=== PATIENT | male | born 1960 | race African-American/Black ===

== ENCOUNTER 2019-08-12 15:52 | Inpatient (IN) | payer MEDICARE, MEDICAID ==
[~2019-08-12] VITALS: Ht 182.9 cm; Wt 81.2 kg
[~2019-08-12 15:52] MED LIST: GABA-533 PO; IBUP-2071 PO; LISI10TA7 PO; MOME17N NASAL; OXYC-601 PO; OXYC10 PO; TAMS-13 PO; ZOLP10TA7 PO
[2019-08-12] MEDS ORDERED: FURO20 PO (15:59)
[2019-08-12] MEDS ORDERED: FURO40 PO (16:58)
[2019-08-12] MEDS ORDERED: FUROSEMIDE 40 MG/4 ML VIAL IVP ONE (17:00)
[2019-08-12 17:09] LABS: EOSINOPHILS % (AUTO) 5.5 % (1.0-6.0); HEMOGLOBIN 13.6 g/dL (13.5-17.5); LYMPHOCYTES # (AUTO) 1.4 K/uL (1.0-4.8); LYMPHOCYTES % (AUTO) 26.6 % (22.0-44.0); MEAN CORPUSCULAR HEMOGLOBIN 31.6 pg (26.0-34.0); MEAN CORPUSCULAR HGB CONC 31.6 G/dL (31.0-37.0); MEAN CORPUSCULAR VOLUME 100 fL (80-100); MONOCYTES # (AUTO) 0.5 K/uL (0.1-1.0); MONOCYTES % (AUTO) 10.1 % (2.0-9.0); NEUTROPHILS % (AUTO) 56.8 % (40.0-70.0); PLATELET COUNT (AUTO) 219 K/uL (150-450); RED BLOOD CELL COUNT(AUTO) 4.31 MIL/uL (4.50-5.90); RED CELL DISTRIBUTION WIDTH 14.9 % (11.5-14.5)
[2019-08-12 17:24] LABS: INR 1.1 (0.9-1.1); PROTHROMBIN TIME 11.9 SEC (9.4-11.6)
[2019-08-12 17:28] LABS: APPEARANCE,URINE CLEAR (CLEAR); BILIRUBIN,URINE NEGATIVE (NEGATIVE); GLUCOSE, URINE (UA) NEGATIVE (NEGATIVE); KETONES,URINE NEGATIVE (NEGATIVE); LEUKOCYTE ESTERASE ,URINE NEGATIVE (NEGATIVE); NITRATE,URINE NEGATIVE (NEGATIVE); OCCULT BLOOD,URINE NEGATIVE (NEGATIVE); PROTEIN,URINE TRACE (NEGATIVE)
[2019-08-12 17:39] LABS: CALCIUM, TOTAL 8.9 mg/dL (8.8-10.5); CREATININE 1.66 mg/dL (0.60-1.30); POTASSIUM 3.7 mmol/L (3.5-5.1)
[2019-08-12 17:46] LABS: ALBUMIN 3.4 g/dL (3.4-5.0); BILIRUBIN,TOTAL 1.2 mg/dL (0.1-1.0); TOTAL PROTEIN, SERUM 7.7 g/dL (6.4-8.2)
[2019-08-12] MEDS ORDERED: NITROGLYCERIN 2% (1 GM=INCH) PACKET TP ONE (18:15)
[2019-08-12] MEDS ORDERED: ASPIRIN 325 MG TABLET PO ONE (18:15)
[2019-08-12] MEDS ORDERED: ACETAMINOPHEN 325 MG TABLET PO PRN (19:00)
[2019-08-12] MEDS ORDERED: ONDANSETRON HCL 4 MG/2 ML VIAL IVP PRN (19:00)
[2019-08-12] MEDS ORDERED: 0.9% SODIUM CHLORIDE 10 ML SYRINGE IVP PRN (19:00)
[2019-08-12 20:52] VITALS: BP 123/89
[2019-08-12 23:34] VITALS: BP 114/86
[2019-08-12] MEDS ORDERED: PNEUMOCOCCAL VACCINE POLYVALENT 0.5 ML VIAL [PPSV23] IM ONE (23:45)
[2019-08-13 04:41] VITALS: BP 110/79
[2019-08-13] MEDS ORDERED: 0.9% SODIUM CHLORIDE 10 ML SYRINGE IVP PRN (05:00)
[2019-08-13] MEDS ORDERED: MAGNESIUM HYDROXIDE SUSPENSION 30 ML UDCUP PO PRN (05:00)
[2019-08-13] MEDS ORDERED: OxyCODONE HCL/ACETAMINOPHEN 5-325 MG TABLET PO PRN (05:00)
[2019-08-13] MEDS ORDERED: ONDANSETRON HCL 4 MG/2 ML VIAL IVP PRN (05:00)
[2019-08-13] MEDS ORDERED: ACETAMINOPHEN 325 MG TABLET PO PRN (05:00)
[2019-08-13 06:43] LABS: EOSINOPHILS % (AUTO) 5.7 % (1.0-6.0); HEMATOCRIT 42.4 % (41-53); HEMOGLOBIN 13.6 g/dL (13.5-17.5); LYMPHOCYTES # (AUTO) 1.7 K/uL (1.0-4.8); LYMPHOCYTES % (AUTO) 32.6 % (22.0-44.0); MEAN CORPUSCULAR HEMOGLOBIN 32.2 pg (26.0-34.0); MEAN CORPUSCULAR VOLUME 101 fL (80-100); MONOCYTES # (AUTO) 0.5 K/uL (0.1-1.0); MONOCYTES % (AUTO) 9.5 % (2.0-9.0); NEUTROPHILS # (AUTO) 2.7 K/uL (1.8-7.7); NEUTROPHILS % (AUTO) 51.2 % (40.0-70.0); PLATELET COUNT (AUTO) 225 K/uL (150-450); RED BLOOD CELL COUNT(AUTO) 4.21 MIL/uL (4.50-5.90); RED CELL DISTRIBUTION WIDTH 14.8 % (11.5-14.5)
[2019-08-13 07:09] LABS: ALBUMIN 3.3 g/dL (3.4-5.0); BILIRUBIN,TOTAL 1.6 mg/dL (0.1-1.0); CALCIUM, TOTAL 8.9 mg/dL (8.8-10.5); CREATININE 1.57 mg/dL (0.60-1.30); POTASSIUM 3.4 mmol/L (3.5-5.1); TOTAL PROTEIN, SERUM 7.4 g/dL (6.4-8.2)
[2019-08-13 07:40] VITALS: BP 133/88
[2019-08-13] MEDS: FAMOTIDINE 10 MG/ML 2 ML VIAL IVP SCH (08:17)
[2019-08-13] MEDS: HEPARIN SODIUM,PORCINE 5,000 UNITS/ML VIAL SQ SCH ×2 (08:18→21:12)
[2019-08-13] MEDS: DOCUSATE SODIUM 100 MG CAPSULE PO SCH ×2 (08:18→21:12)
[2019-08-13] MEDS: FUROSEMIDE 40 MG/4 ML VIAL IVP SCH (08:18)
[2019-08-13 11:10] VITALS: BP 130/101
[2019-08-13] MEDS: NICOTINE 21 MG/24 HOUR PATCH TD SCH (13:49)
[2019-08-13] MEDS: LISINOPRIL 5 MG TABLET PO SCH (13:49)
[2019-08-13 16:10] VITALS: BP 131/105
[2019-08-13 20:03] VITALS: BP 134/99
[2019-08-13] MEDS ORDERED: TAMS-1 PO (20:29)
[2019-08-13] MEDS ORDERED: TAMSULOSIN HCL 0.4 MG CAPSULE PO SCH (20:30)
[2019-08-13] MEDS: CARVEDILOL 6.25 MG TABLET PO SCH (21:12)
[2019-08-13] MEDS: OxyCODONE HCL/ACETAMINOPHEN 5-325 MG TABLET PO PRN (21:20)
[2019-08-13] MEDS: TAMSULOSIN HCL 0.4 MG CAPSULE PO SCH (21:20)
[2019-08-13] MEDS: MELATONIN 3 MG TABLET PO PRN (21:57)
[2019-08-13 23:21] LABS: AMPHET/METH SCREEN,URINE NEGATIVE (NEGATIVE); BARBITURATE SCREEN, URINE NEGATIVE (NEGATIVE); BENZODIAZEPINES SCREEN,URINE NEGATIVE (NEGATIVE); CANNABINOID SCREEN,URINE NEGATIVE (NEGATIVE); COCAINE SCREEN,URINE POSITIVE (NEGATIVE); METHADONE SCREEN, URINE NEGATIVE (NEGATIVE); OPIATE SCREEN,URINE NEGATIVE (NEGATIVE)
[2019-08-13 23:22] LABS: PHENCYCLIDINE SCREEN,URINE NEGATIVE (NEGATIVE)
[2019-08-13 23:56] VITALS: BP 104/60
[2019-08-14 05:13] VITALS: BP 125/70
[2019-08-14 05:28] LABS: BASOPHILS % (AUTO) 1.2 % (0.0-2.0); EOSINOPHILS % (AUTO) 7.1 % (1.0-6.0); HEMATOCRIT 41.8 % (41-53); HEMOGLOBIN 13.4 g/dL (13.5-17.5); LYMPHOCYTES # (AUTO) 1.6 K/uL (1.0-4.8); LYMPHOCYTES % (AUTO) 36.5 % (22.0-44.0); MEAN CORPUSCULAR HEMOGLOBIN 32.1 pg (26.0-34.0); MEAN CORPUSCULAR HGB CONC 32.1 G/dL (31.0-37.0); MEAN CORPUSCULAR VOLUME 100 fL (80-100); MONOCYTES # (AUTO) 0.4 K/uL (0.1-1.0); MONOCYTES % (AUTO) 9.7 % (2.0-9.0); NEUTROPHILS # (AUTO) 2.1 K/uL (1.8-7.7); NEUTROPHILS % (AUTO) 45.5 % (40.0-70.0); PLATELET COUNT (AUTO) 217 K/uL (150-450); RED BLOOD CELL COUNT(AUTO) 4.18 MIL/uL (4.50-5.90); RED CELL DISTRIBUTION WIDTH 14.8 % (11.5-14.5)
[2019-08-14 05:51] LABS: CALCIUM, TOTAL 8.7 mg/dL (8.8-10.5); CREATININE 1.5 mg/dL (0.60-1.30); POTASSIUM 3.3 mmol/L (3.5-5.1)
[2019-08-14] MEDS: FUROSEMIDE 40 MG/4 ML VIAL IVP SCH (08:00)
[2019-08-14] MEDS ORDERED: TAMSULOSIN HCL 0.4 MG CAPSULE PO SCH (09:00)
[2019-08-14] MEDS: LISINOPRIL 5 MG TABLET PO SCH (09:00)
[2019-08-14] MEDS: POTASSIUM CHL 10 MEQ/WATER 50 ML IV SCH ×2 (09:30→10:30)
[2019-08-14] MEDS ORDERED: POTASSIUM CHLORIDE 20 MEQ ER TABLET PO ONE (09:30)
[2019-08-14] MEDS: TAMSULOSIN HCL 0.4 MG CAPSULE PO SCH (09:34)
[2019-08-14] MEDS: FAMOTIDINE 10 MG/ML 2 ML VIAL IVP SCH (09:34)
[2019-08-14] MEDS: HEPARIN SODIUM,PORCINE 5,000 UNITS/ML VIAL SQ SCH ×2 (09:35→20:29)
[2019-08-14] MEDS: NICOTINE 21 MG/24 HOUR PATCH TD SCH (09:35)
[2019-08-14 09:36] VITALS: BP 112/78
[2019-08-14] MEDS: CARVEDILOL 6.25 MG TABLET PO SCH ×2 (09:47→20:29)
[2019-08-14] MEDS: DOCUSATE SODIUM 100 MG CAPSULE PO SCH ×2 (09:47→20:29)
[2019-08-14 10:33] VITALS: BP 121/81
[2019-08-14 11:35] VITALS: BP 108/80
[2019-08-14 15:44] VITALS: BP 116/80
[2019-08-14] MEDS: GABAPENTIN 300 MG CAPSULE PO SCH ×2 (17:10→20:29)
[2019-08-14 19:45] VITALS: BP 145/89
[2019-08-14] MEDS: MELATONIN 3 MG TABLET PO PRN (20:55)
[2019-08-14] MEDS ORDERED: FUROSEMIDE 40 MG/4 ML VIAL IVP SCH (21:00)
[2019-08-15 00:15] VITALS: BP 124/64
[2019-08-15 04:49] VITALS: BP 131/61
[2019-08-15 07:36] VITALS: BP 130/67
[2019-08-15] MEDS: FAMOTIDINE 10 MG/ML 2 ML VIAL IVP SCH (08:46)
[2019-08-15] MEDS: HEPARIN SODIUM,PORCINE 5,000 UNITS/ML VIAL SQ SCH (08:46)
[2019-08-15] MEDS: DOCUSATE SODIUM 100 MG CAPSULE PO SCH (08:47)
[2019-08-15] MEDS: LISINOPRIL 5 MG TABLET PO SCH (08:47)
[2019-08-15] MEDS: CARVEDILOL 6.25 MG TABLET PO SCH (08:47)
[2019-08-15] MEDS: NICOTINE 21 MG/24 HOUR PATCH TD SCH (08:47)
[2019-08-15] MEDS: TAMSULOSIN HCL 0.4 MG CAPSULE PO SCH (08:47)
[2019-08-15] MEDS: OxyCODONE HCL/ACETAMINOPHEN 5-325 MG TABLET PO PRN (08:47)
[2019-08-15] MEDS: GABAPENTIN 300 MG CAPSULE PO SCH (08:49)
[2019-08-15] MEDS ORDERED: FUROSEMIDE 40 MG/4 ML VIAL IVP SCH (09:00)
[2019-08-15 11:25] VITALS: BP 119/83
[2019-08-15] MEDS ORDERED: GABA-531 PO (15:08)
[2019-08-15] MEDS ORDERED: CARV6 PO (15:09)
[2019-08-15] MEDS ORDERED: POTA-9 PO (15:11)
[2019-08-15] MEDS ORDERED: LISI-660 PO (15:13)
[2019-08-15 15:47] VITALS: BP 113/73
== END 2019-08-15 17:10 | disposition home or self-care (01) | DRG 291 ==
LOC: EMS 15:52 → 5S 19:30
PROVIDERS: ADMIT Internal Medicine; ATTEND Internal Medicine
DX: I13.0 Hypertensive heart and chronic kidney disease with heart failure and stage 1 through stage 4 chronic kidney disease, or unspecified chronic kidney disease (principal); I50.43 Acute on chronic combined systolic (congestive) and diastolic (congestive) heart failure; I42.9 Cardiomyopathy, unspecified; F14.90 Cocaine use, unspecified, uncomplicated; J44.9 Chronic obstructive pulmonary disease, unspecified; M19.90 Unspecified osteoarthritis, unspecified site; F17.210 Nicotine dependence, cigarettes, uncomplicated; G47.33 Obstructive sleep apnea (adult) (pediatric); Z91.14 Patient's other noncompliance with medication regimen; Z82.0 Family history of epilepsy and other diseases of the nervous system; Z79.899 Other long term (current) drug therapy; N18.2 Chronic kidney disease, stage 2 (mild)
CPT/HCPCS: 80307; 84132; 93005; 93306; 96374; 96375; G0378; J1644; J1940; J3480; J3490